=== PATIENT | male | born 1945 | race Caucasian/White ===

== ENCOUNTER 2021-12-17 08:13 | Outpatient (CLI) | payer OTHER, SELFPAY ==
--- NOTE | 2022-01-08 17:33 | WPDHOMESLEEP ---
Sleep Study - Home Unattended Date of Study: 12/17/21 Ordering Provider: TIA Prather Interpreting Provider: Desiree Garcia, DO Home Sleep Study Type: Watch PAT Height: 1.8 m Weight: 111.584 kg Body Mass Index: 34.2 Neck Circumference (inches): 17.5 [place]: 10 Reason for Sleep Study Snoring Sleep History The patient is a 76-year-old male with hyperlipidemia, depression, hypertension, carotid stenosis, chronic kidney disease and benign prostatic hyperplasia the sleep study the pulmonary group for evaluation of sleep apnea. 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 He denies awakening from sleep short of breath. He rarely awakens at night with heartburn, belching or cough. He frequently snores loud enough that others complain. He frequently has trouble sleeping when he has a cold. He denies waking up gasping for air throughout the night. He rarely has breathing problems at night observed by himself or others. He denies sweating excessively at night. He denies having heart palpitations or irregular heartbeats during the night. He rarely falls asleep during the day and never while driving. He denies sleep paralysis, cataplexy and hypnagogic / hypnopompic hallucinations. He denies having trouble at school or work due to sleepiness. He denies feeling afraid of going to sleep. He denies having nightmares. He occasionally remembers his dreams. He rarely has thoughts racing through his mind. He denies feeling sad, depressed or anxious. He denies having muscular tension. He denies noticing parts of his body jerk. He denies kicking during the night. He denies having crawling and aching feelings in his legs but will rarely have leg pain during the night. He frequently grinds his teeth during sleep but never awakens with morning jaw pain. He is rarely bothered by pain during the day and rarely awakened by pain during the night. He occasionally wakes up feeling stiff in the morning. He occasionally wakes up with sore or achy muscles. He occasionally wakes up pain in the neck, spine or other joints. He goes to bed at 10:00 p.m. on weekdays and 11:00 p.m. on the weekends. He can fall asleep within 10 minutes. He wakes up 3 times throughout the night to urinate. He is able to fall asleep immediately. He wakes up at 5:30 a.m. on weekdays and 8:00 a.m. on the weekends. He typically gets 7 to 7-1/2 hours of sleep per night. He does not stay in bed after waking up in the morning. He currently lives with his . He does not consume any caffeinated beverages within 2 hours of bedtime. He does not engage in physical exercise before bedtime. He will read and watch television before falling asleep. He will take naps in the afternoon or the evening and they are refreshing. He drinks 1 caffeinated beverage in the morning. He drinks 2 glasses of wine per week. He denies tobacco and recreational drug use. [facility] Past Medical History Medical History Carotid stenosis CKD (chronic kidney disease) Dyslipidemia Family history of cancer Hypertension Surgical History Surgical History H/O rhinoplasty Family History Family History Sibling Patient's sister is in good health Hypertension Heart attack Mother Family history of pancreatic cancer, Onset Age: 83 Patient's mother is Biomechanical lesion, unspecified Father Patient's father is Acute myocardial infarction, Onset Age: 68 Heart disease Heart attack Other Depression Social History Social History Smoking status: Never smoker Alcohol intake: current Medications Home Medications Medication Instructions Recorded Confirmed Type aspirin 81 mg chewable tablet 81 mg P
[2022-01-08 17:46] VITALS: BMI 34.2
== END 2021-12-18 10:47 | disposition home or self-care (01) ==
LOC: ANHCSM 08:14
PROVIDERS: PCP Internal Medicine; Visit Provider Physician Assistant
DX: G47.10 Hypersomnia, unspecified (principal); G47.33 Obstructive sleep apnea (adult) (pediatric)
CPT/HCPCS: 95800

== ENCOUNTER 2022-01-20 19:36 | Emergency (ER) | payer OTHER, SELFPAY ==
[2022-01-20 19:45] VITALS: BP 150/73; PULSE 56; RESP 16; TEMP 36.2; O2SAT 98
--- NOTE | 2022-01-20 20:43 | PC.NURSE ---
Patient up to triage desk to inform this RN that he was feeling much better and no longer wanted to be seen. Patient encouraged to stay for evaluation but he declined. Patient encouraged to return to the ED with any new or worsening sx.
[2022-01-20 22:20] VITALS: BP 146/74; PULSE 68; RESP 20; TEMP 36.3; O2SAT 96
--- NOTE | 2022-01-20 23:37 | ED.ABDPAIN ---
HPI - Abdominal Pain General Chief Complaint: Abdominal Pain <DARREL Olivera Last Filed: 01/21/22 02:32> Stated Complaint: constipation x 4 days <DARREL Olivera Last Filed: 01/21/22 02:32> Time Seen by Provider: 01/20/22 23:26 <DARREL Olivera Last Filed: 01/21/22 02:32> Source: patient <DARREL Olivera Last Filed: 01/21/22 02:32> Mode of arrival: ambulatory <DARREL Olivera Last Filed: 01/21/22 02:32> Limitations: no limitations <DARREL Olivera Last Filed: 01/21/22 02:32> History of Present Illness HPI narrative: Patient is a 76-year-old male who presents to the ED with report of constipation. Patient reports his last solid bowel movement was 3 to 4 days ago. He typically has a bowel movement every day. He feels like there is a stool ball in his rectum and complains of rectal discomfort with sitting. He denies any abdominal pain. He notes he was recently started on Tramadol for R hip pain. He has had mild difficulty urinating over the last several hours which he believes is due to the constipation. He denies previous issues with urinary retention. Denies any nausea, vomiting, fever, chills, rectal bleeding. <DARREL Olivera Last Filed: 01/21/22 02:32> Related Data Home Medications: Home Medications Medication Instructions Recorded Confirmed aspirin 81 mg chewable tablet 81 mg PO DAILY 11/21/21 11/24/21 (Vira Chewable Low Dose Aspirin) atorvastatin 40 mg tablet 40 mg PO DAILY 11/21/21 11/24/21 citalopram 20 mg tablet 20 mg PO DAILY 11/21/21 11/24/21 gemfibrozil 600 mg tablet 600 mg PO DAILY 11/21/21 11/24/21 losartan 100 mg tablet 100 mg PO DAILY 11/21/21 11/24/21 tamsulosin 0.4 mg capsule 0.4 mg PO DAILY 11/21/21 11/24/21 <Mackenzie Carmona PA-C - Last Filed: 01/21/22 02:32> Allergies/Adverse Reactions: Allergies Allergy/AdvReac Type Severity Reaction Status Date / Time No Known Allergies Allergy Verified 01/20/22 19:49 <Mackenzie Carmona PA-C - Last Filed: 01/21/22 02:32> Review of Systems Review of Systems: CONSTITUTIONAL: Denies fever, chills, or sweats. ENT: Denies rhinorrhea, congestion, sore throat. CARDIOVASCULAR: Denies chest pain. RESPIRATORY: Denies cough or dyspnea. GASTROINTESTINAL: Reports constipation, rectal discomfort. Denies abdominal pain, nausea, vomiting, rectal bleeding. GENITOURINARY: Reports difficulty urinating. Denies dysuria or hematuria. SKIN: Denies rash or itching. MUSCULOSKELETAL: Denies back pain, joint pain, or myalgia. NEUROLOGIC: Denies headache, numbness, or weakness. <Mackenzie Carmona PA-C - Last Filed: 01/21/22 02:32> CONSTITUTIONAL: Denies fever, chills, or sweats. ENT: Denies rhinorrhea, congestion, sore throat. CARDIOVASCULAR: Denies chest pain. RESPIRATORY: Denies cough or dyspnea. GASTROINTESTINAL: Reports constipation, rectal discomfort. Denies abdominal pain, nausea, vomiting, rectal bleeding. GENITOURINARY: Reports difficulty urinating. Denies dysuria or hematuria. SKIN: Denies rash or itching. MUSCULOSKELETAL: Denies back pain, joint pain, or myalgia. NEUROLOGIC: Denies headache, numbness, or weakness. Psych: Normal effect <Manuel Crump MD - Last Filed: 01/21/22 22:35> All systems reviewed & are unremarkable except as noted in HPI and below <Mackenzie Carmona PA-C - Last Filed: 01/21/22 02:32> PMFSH Past Medical History Medical History: Medical History Carotid stenosis CKD (chronic kidney disease) Dyslipidemia Family history of cancer Hypertension <Mackenzie Carmona PA-C - Last Filed: 01/21/22 02:32> Surgical History Surgical History: Surgical History H/O rhinoplasty <Mackenzie Carmona PA-C - Last Filed: 01/21/22 02:32> Family History Family His
--- NOTE | 2022-01-20 23:59 | PC.NURSE ---
Pt had huge BM in ED bathroom and would like to be reassessed by PA prior to continuing with IV, blood work, and cat scan at this time. RADHA Mann made aware at this time.
[2022-01-21 00:45] VITALS: PULSE 78; RESP 18; O2SAT 99
== END 2022-01-21 00:45 | disposition home or self-care (01) ==
PROVIDERS: Emergency Provider Emergency Medicine; PCP Internal Medicine
DX: K59.00 Constipation, unspecified (principal); I12.9 Hypertensive chronic kidney disease with stage 1 through stage 4 chronic kidney disease, or unspecified chronic kidney disease; N18.9 Chronic kidney disease, unspecified
CPT/HCPCS: 99281

== ENCOUNTER 2022-04-05 07:36 | Emergency (ER) | payer OTHER, SELFPAY ==
--- NOTE | ~2022-04-05 | XR_ITS ---
XR abdomen obstructive series DATE: 04/05/2022 08:32 INDICATION: Abdominal pain. No bowel movement in 9 days TECHNIQUE: Supine and upright AP views COMPARISON: None FINDINGS: The lower lung zones are clear. Normal heart size. No pleural effusion or pneumoperitoneum. Moderately prominent of fecal material in the rectum and colon. No bowel obstruction is evident. The psoas shadows are intact. No visceromegaly or significant abnormal calcification is noted. Degenerative changes of the thoracic and lumbar spine. Prominent left hip osteophyte is. Status post right total hip arthroplasty. IMPRESSION: Prominent of fecal material in the rectum and colon; no bowel obstruction or free air Reviewed, dictated and finalized at [facility] Reviewed, dictated and finalized at [facility] PREPARER IMPRESSION: Prominent of fecal material in the rectum and colon; no bowel obstr uction or free air
--- NOTE | ~2022-04-05 | CT_ITS ---
EXAMINATION: CT abdomen pelvis wo con DATE: 04/05/2022 14:11 INDICATION: Abdominal pain TECHNIQUE: Computed tomography (CT) of the abdomen and pelvis was performed without intravenous contr ast. Automated exposure control and iterative reconstruction technique were employed. Exam dose: 126 4.58 mGy-cm total exam DLP. COMPARISON: April 05, 2022 supine and upright AP views of the abdomen 03/02/2014 CT abdomen pelvis FINDINGS: Minimal bilateral lower lobe dependent atelectasis. The lung bases are clear of consolidati on. Borderline heart size. No pericardial or pleural effusion. Status post cholecystectomy. The liver, bile ducts, pancreas, pancreatic duct and spleen are unremark able. Normal morphology of the adrenal glands. No right renal mass lesion or right urinary tract calculus or hydroureteronephrosis is evident. Indeterminate approximately 1.3 cm hyperdense exophytic lesion of the upper pole of the left kidney. Further evaluation is recommended to exclude hypernephroma. Differential diagnosis includes hyperdens e cyst. The left kidney is otherwise unremarkable. No left urinary tract calculus or hydroureteroneph rosis. As a Aquino catheter within the urinary bladder which is completely evacuated and not optimally evalua michele. There is atherosclerotic calcification of the abdominal aorta and iliac and femoral arteries but no a neurysm is evident. No intraperitoneal or retroperitoneal or pelvic mass lesion or adenopathy or asci robbie. Small sliding hiatal hernia. Normal appendix. There is a prominent amount of fecal material within the rectum and colon. No bowel obstruction, seth l wall thickening, pneumatosis or intraperitoneal free air is noted. Diffuse idiopathic skeletal hyperostosis of the thoracolumbar spine. Severe degenerative disc disease and mild retrolisthesis at L2-3. Status post right total hip arthroplasty. IMPRESSION: Status post cholecystectomy Nonspecific 1.3 cm exophytic hyperdense lesion at the upper pole of the left kidney; diffusion diagno sis includes hyperdense cyst versus hypernephroma. Further evaluation is recommended and might includ e CT examination with IV contrast material or MR renal examination. Small sliding hiatal hernia Normal appendix Prominent of fecal material in the rectum and colon; no bowel obstruction Status post right hip arthroplasty Reviewed, dictated and finalized at [facility] Reviewed, dictated and finalized at [facility] [employer] ATTENDANT IMPRESSION: Status post cholecystectomy Nonspecific 1.3 cm exophytic hyperdense lesion at the upper pole of the left ki dney; diffusion diagnosis includes hyperdense cyst versus hypernephroma. Furthe r evaluation is recommended and might include CT examination with IV contrast m aterial or MR renal examination. Small sliding hiatal hernia Normal appendix Prominent of fecal material in the rectum and colon; no bowel obstruction Status post right hip arthroplasty
[2022-04-05 07:48] VITALS: BP 140/69; PULSE 84; RESP 20; TEMP 36.4; O2SAT 100
[2022-04-05 08:44] LABS: Basophils Percent Auto 0.2 % (0.2-1.2); Eosinophils Absolute Auto 0.1 K/mm3 (0-0.3); Eosinophils Percent Auto 0.6 % (0-4.4); Hematocrit 37.4 % (42.0-52.0); Hemoglobin 12.1 g/dL (14.0-18.0); Immature Granulocyte Absolute 0.05 K/mm3 (0.00-0.031); Immature Granulocyte Percent A 0.5 % (0-0.5); Lymphocytes Absolute Auto 1.18 K/mm3 (0.9-3.2); Lymphocytes Percent Auto 11.3 % (18.3-44.2); Mean Corpuscular HGB Conc 32.4 g/dl (32-36); Mean Corpuscular Hemoglobin 28.9 pg (26-34); Mean Corpuscular Volume 89.3 fl (80-100); Mean Platelet Volume 9.9 fl (7.4-10.4); Monocytes Absolute Auto 0.9 K/mm3 (0.1-0.6); Monocytes Percent Auto 8.7 % (2.6-8.5); Neutrophils Absolute Auto 8.3 K/mm3 (1.3-6.7); Neutrophils Percent Auto 78.7 % (45.5-73.1); Platelet Count Result 265 k/mm3 (150-375); Red Blood Count 4.19 M/mm3 (4.6-6.20); Red Cell Distribution Width 13.5 % (11.5-14.5); White Blood Count 10.5 K/mm3 (4.5-10.0)
[2022-04-05 08:50] LABS: Appearance Urine Clear (Clear); Bilirubin Urine Negative (Negative); Blood Urine Negative (Negative); Color Urine Yellow (Yellow); Glucose Urine UA Negative (Negative); Ketones Urine Negative (Negative); Leukocyte Esterase Ur Negative LEU/UL (Negative); Nitrate Urine Negative (Negative); Protein Urine Negative (Negative); Specific Grav Ur 1.011 (1.001-1.035); pH Urine 6.5 (5.0-9.0)
[2022-04-05 08:55] LABS: Alanine Aminotransferase 235 U/L (6-50); Albumin Level 4.1 g/dL (3.5-5.1); Alkaline Phosphatase 287 U/L (38-126); Anion Gap 7 mmol/L (8-16); Aspartate Amino Transferase 141 U/L (17-59); Bilirubin,Total 1.3 mg/dL (0.2-1.3); Blood Urea Nitrogen 26 mg/dL (9-20); Calcium 10.1 mg/dL (8.4-10.2); Carbon Dioxide 23 mmol/L (22-30); Chloride 103 mmol/L (98-107); Estimated CRCL calculation 60 ml/min; Estimated Glomerular Filt Rate 59; Glucose 110 mg/dL (65-110); Lipase 107 U/L (23-300); Potassium 3.9 mmol/L (3.4-5.0); Sodium 133 mmol/L (137-145)
[2022-04-05 08:57] LABS: Add Urine Microscopic? NO
[2022-04-05] MEDS: METHYLNALTREXONE 12 MG/0.6 ML VIAL SUB-Q (09:25)
[2022-04-05 09:33] VITALS: RESP 11
[2022-04-05 12:30] VITALS: BP 129/65; PULSE 79; RESP 15; O2SAT 99
[2022-04-05 14:49] VITALS: BP 156/79; PULSE 78; RESP 19; O2SAT 97
--- NOTE | 2022-04-05 14:50 | ED.ABDPAIN ---
HPI - Abdominal Pain General Chief Complaint: Abdominal Pain Stated Complaint: constipation -- last BM 8 days ago Time Seen by Provider: 04/05/22 07:51 Source: RN notes reviewed History of Present Illness HPI narrative: Patient presents emergency department from home for abdominal pain. Patient states that he has been unable to urinate since last night and has been unable to have a bowel movement for the past 8 days. Patient states he had a hip replacement has been on oxycodone since that time. States he has been taking stool softeners and called his orthopod last night told him to stop taking his oxycodone and instead just take Tylenol. He states that he has had no fevers or chills he denies any nausea or vomiting denies any other symptoms at this time Related Data Home Medications Medication Instructions Recorded Confirmed aspirin 81 mg chewable tablet 81 mg PO DAILY 11/21/21 11/24/21 (Vira Chewable Low Dose Aspirin) atorvastatin 40 mg tablet 40 mg PO DAILY 11/21/21 11/24/21 citalopram 20 mg tablet 20 mg PO DAILY 11/21/21 11/24/21 gemfibrozil 600 mg tablet 600 mg PO DAILY 11/21/21 11/24/21 losartan 100 mg tablet 100 mg PO DAILY 11/21/21 11/24/21 tamsulosin 0.4 mg capsule 0.4 mg PO DAILY 11/21/21 11/24/21 Allergies Allergy/AdvReac Type Severity Reaction Status Date / Time No Known Allergies Allergy Verified 04/05/22 07:38 Review of Systems Review of Systems: Gen.: Denies fevers or chills ENT: Denies congestion Respiratory: Denies shortness of breath or cough CV: Denies chest pain or palpitations GI: See HPI reports urinary incontinence Musculoskeletal: Denies back pain or muscle pain Neuro: Denies numbness, tingling, weakness or focal weakness Skin: Denies rash Except as documented, all other systems reviewed and negative [facility] Past Medical History Medical History Carotid stenosis CKD (chronic kidney disease) Dyslipidemia Family history of cancer Hypertension Surgical History Surgical History H/O rhinoplasty Family History Family History Sibling Patient's sister is in good health Hypertension Heart attack Mother Family history of pancreatic cancer, Onset Age: 83 Patient's mother is Biomechanical lesion, unspecified Father Patient's father is Acute myocardial infarction, Onset Age: 68 Heart disease Heart attack Other Depression Social History Social History Smoking status: Never smoker Alcohol intake: current Exam Narrative: APPEARANCE: No acute distress, nontoxic, resting in bed HEENT: Normocephalic, atraumatic, OMM RESPIRATORY: No respiratory distress, clear to auscultation bilaterally with no rhonchi wheezing or rales CARDIOVASCULAR: RRR s murmur ABDOMINAL: Soft nondistended tender palpation suprapubic region no tenderness in right upper quadrant, left upper quadrant, right lower quadrant and left lower quadrant no rebound or guarding MUSCULOSKELETAl: Moves all extremities. No clubbing, cyanosis or edema. NEURO: Awake and alert. Following commands, speech normal, no focal deficits SKIN:: Warm, dry. Normal Color PSYCHIATRIC: Normal affect/mood Course Course Emergency Course: Patient with Aquino catheter placed in ED with approximately 1300 mL out it was clamped after the initial thousand Patient given Relistor in the ED with small bowel movement patient subsequently given enema following enema patient with much larger bowel movement Discussed with patient results of workup and diagnosis. Discussed need for follow-up with primary care, proper use of medication, and reasons to return to the emergency department. Patient understands and agrees to current treatment plan patient states he is on MiraLAX
[2022-04-05 15:42] VITALS: BP 136/83; PULSE 68; RESP 17; O2SAT 100
== END 2022-04-05 15:44 | disposition home or self-care (01) ==
PROVIDERS: Emergency Provider Emergency Medicine; PCP Internal Medicine
DX: R33.9 Retention of urine, unspecified (principal); K59.00 Constipation, unspecified; N18.9 Chronic kidney disease, unspecified; I12.9 Hypertensive chronic kidney disease with stage 1 through stage 4 chronic kidney disease, or unspecified chronic kidney disease; I65.29 Occlusion and stenosis of unspecified carotid artery; E78.5 Hyperlipidemia, unspecified; N28.9 Disorder of kidney and ureter, unspecified; Z96.641 Presence of right artificial hip joint; K44.9 Diaphragmatic hernia without obstruction or gangrene
CPT/HCPCS: 36415; 74019; 74176; 80053; 81003; 83690; 85025; 96372; 99284; J2212